=== PATIENT | male | born 2000 | race Caucasian/White ===

== ENCOUNTER 2020-11-02 17:35 | Emergency (ER) | payer OTHER ==
[~2020-11-02 17:35] MED LIST: CEFUROXIME500 MG PO; PROTONIX40 MG PO; ZITHROMAX250 MG PO
[2020-11-02] MEDS ORDERED: AUGMENTIN 875-1 EACH PO (17:49)
== END 2020-11-02 17:52 | disposition home or self-care (01) ==
LOC: ER1 17:35
DX: H66.92 Otitis media, unspecified, left ear (principal); K08.89 Other specified disorders of teeth and supporting structures; F17.200 Nicotine dependence, unspecified, uncomplicated
CPT/HCPCS: 99282

== ENCOUNTER 2020-12-15 16:49 | Emergency (ER) | payer OTHER ==
[~2020-12-15 16:49] MED LIST changes: +AUGMENTIN 875-1 EACH PO
[2020-12-15 18:11] LABS: BUN/CREATININE RATIO 12 (0-10)
[2020-12-15 18:20] LABS: HEMOGLOBIN 15.2 gm/dl (14.0-17.5); RED BLOOD COUNT 5.14 M/UL (4.20-5.50); WHITE BLOOD COUNT 7.7 K/UL (4.5-11.0)
[2020-12-15] MEDS ORDERED: PROTONIX40 MG PO (18:56)
[2020-12-15] MEDS ORDERED: ZOFRAN ODT 4 MG4 MG SL (18:56)
== END 2020-12-15 19:05 | disposition home or self-care (01) ==
LOC: ER1 16:49
PROVIDERS: Emergency Medicine
DX: R11.2 Nausea with vomiting, unspecified (principal); R19.7 Diarrhea, unspecified; F17.200 Nicotine dependence, unspecified, uncomplicated; Z20.822 Contact with and (suspected) exposure to COVID-19
CPT/HCPCS: 80053; 81001; 83690; 85025; 96374; 96375; 99284; J2405; U0002

== ENCOUNTER 2020-12-19 15:06 | Emergency (ER) | payer OTHER ==
[~2020-12-19 15:06] MED LIST changes: +ZOFRAN ODT 4 MG4 MG SL
[2020-12-19] MEDS ORDERED: NAPROSYN500 MG PO (15:44)
[2020-12-19] MEDS ORDERED: AMOXICILLIN875 MG PO (15:44)
== END 2020-12-19 15:58 | disposition home or self-care (01) ==
LOC: ER1 15:06
DX: K03.81 Cracked tooth (principal); F17.210 Nicotine dependence, cigarettes, uncomplicated
CPT/HCPCS: 99282

== ENCOUNTER 2020-12-27 16:43 | Emergency (ER) | payer OTHER ==
[~2020-12-27 16:43] MED LIST changes: +AMOXICILLIN875 MG PO; +NAPROSYN500 MG PO
== END 2020-12-27 17:07 | disposition home or self-care (01) ==
LOC: ER1 16:43
DX: M67.432 Ganglion, left wrist (principal); Z88.8 Allergy status to other drugs, medicaments and biological substances
CPT/HCPCS: 99283

== ENCOUNTER 2021-01-03 17:59 | Emergency (ER) | payer OTHER ==
[2021-01-03] MEDS ORDERED: AMOXICILLIN500 M1 PO (18:34)
[2021-01-03] MEDS ORDERED: IBUPROFEN600 MG PO (18:34)
== END 2021-01-03 18:46 | disposition home or self-care (01) ==
LOC: ER1 17:59
DX: K02.9 Dental caries, unspecified (principal); R68.84 Jaw pain; F17.200 Nicotine dependence, unspecified, uncomplicated
CPT/HCPCS: 99283

== ENCOUNTER 2021-02-09 13:38 | Emergency (ER) | payer OTHER ==
[~2021-02-09 13:38] MED LIST changes: +AMOXICILLIN500 M1 PO; +IBUPROFEN600 MG PO
[2021-02-09 14:02] LABS: HEMOGLOBIN 14.4 gm/dl (14.0-17.5); RED BLOOD COUNT 4.82 M/UL (4.20-5.50); WHITE BLOOD COUNT 8.5 K/UL (4.5-11.0)
[2021-02-09 14:21] LABS: BUN/CREATININE RATIO 14 (0-10)
[2021-02-09] MEDS ORDERED: ONDANSETRON ODT4 MG SL (17:53)
== END 2021-02-09 18:05 | disposition home or self-care (01) ==
LOC: ER1 13:38
PROVIDERS: Physician Assistant
DX: R10.13 Epigastric pain (principal); R11.2 Nausea with vomiting, unspecified; R19.7 Diarrhea, unspecified; F17.200 Nicotine dependence, unspecified, uncomplicated
CPT/HCPCS: 80053; 82150; 83690; 85025; 99284

== ENCOUNTER 2021-03-23 14:29 | Emergency (ER) | payer OTHER ==
[~2021-03-23 14:29] MED LIST changes: +ONDANSETRON ODT4 MG SL
[2021-03-23 15:21] LABS: HEMOGLOBIN 14.5 gm/dl (14.0-17.5); RED BLOOD COUNT 5.08 M/UL (4.20-5.50); WHITE BLOOD COUNT 3.7 K/UL (4.5-11.0)
[2021-03-23 15:36] LABS: BUN/CREATININE RATIO 11 (0-10)
== END 2021-03-23 18:05 | disposition home or self-care (01) ==
LOC: ER1 14:29
PROVIDERS: Physician Assistant
DX: U07.1 COVID-19 (principal); F17.210 Nicotine dependence, cigarettes, uncomplicated
CPT/HCPCS: 0240U; 80053; 85025; 85652; 86140; 99284

== ENCOUNTER 2021-05-12 14:50 | Emergency (ER) | payer OTHER ==
[2021-05-12] MEDS ORDERED: IBUPROFEN600 MG PO (15:44)
== END 2021-05-12 15:55 | disposition home or self-care (01) ==
LOC: ER1 14:50
DX: M72.2 Plantar fascial fibromatosis (principal)
CPT/HCPCS: 73630; 99283

== ENCOUNTER 2021-05-25 14:29 | Emergency (ER) | payer OTHER ==
[2021-05-25 15:14] LABS: RED BLOOD COUNT 5.12 M/UL (4.20-5.50); WHITE BLOOD COUNT 6.2 K/UL (4.5-11.0)
[2021-05-25 15:32] LABS: BUN/CREATININE RATIO 17 (0-10)
[2021-05-25] MEDS ORDERED: BROMFED DM COU473 ML PO (15:49)
== END 2021-05-25 16:29 | disposition home or self-care (01) ==
LOC: ER1 14:29
PROVIDERS: Nurse Practitioner
DX: J06.9 Acute upper respiratory infection, unspecified (principal); Z20.822 Contact with and (suspected) exposure to COVID-19; E66.9 Obesity, unspecified; F17.290 Nicotine dependence, other tobacco product, uncomplicated
CPT/HCPCS: 0240U; 71045; 80053; 85025; 99285

== ENCOUNTER 2021-10-24 16:48 | Emergency (ER) | payer OTHER ==
[~2021-10-24 16:48] MED LIST changes: +BROMFED DM COU473 ML PO
== END 2021-10-24 19:17 | disposition left against medical advice (07) ==
LOC: ER1 16:48
DX: R21 Rash and other nonspecific skin eruption (principal)
CPT/HCPCS: 99282